=== PATIENT | male | born 1960 | race Caucasian/White ===

== ENCOUNTER 2017-11-19 16:09 | Outpatient (CLI) | payer OTHER ==
--- NOTE | 2017-11-19 18:53 | XRAY Report ---
Procedure Date: 11/19/2017 Accession Number: [id number] / [id number] Procedure: XR - Shoulder 3 View RT CPT Code: FULL RESULT: EXAM: RIGHT SHOULDER RADIOGRAPHY EXAM DATE: 11/19/2017 04:23 PM. CLINICAL HISTORY: History of subluxation and clavicle fracture. Patient presents with acute right shoulder pain, possibly due to overuse with arms outstretched above head while working on ceilings. COMPARISON: None. TECHNIQUE: 4 views. FINDINGS: Bones: Old fractures of the posterolateral aspects of the right fourth through seventh ribs. Old fracture involving the distal clavicle diaphysis just medial to the coracoclavicular ligament insertion. At least 3 cm foreshortening of the right clavicle due to overlapping fracture fragments. No acute trabecular or cortical disruption. Joints: The glenohumeral and acromioclavicular joints are normal. Soft tissues: The visualized hemithorax is unremarkable. No soft tissue calcification nor swelling. IMPRESSION: 1. Old right clavicle fracture, suspect altered shoulder mechanical dynamics secondary to location of such as well as foreshortening. 2. Old right rib fractures. 3. Otherwise, unremarkable exam. [facility]
== END 2017-11-19 16:10 | disposition home or self-care (01) ==
LOC: DI 16:09
PROVIDERS: ATTEND Family Medicine
DX: M25.511 Pain in right shoulder (principal)